=== PATIENT | female | born 1960 | race Caucasian/White ===

== ENCOUNTER 2024-02-12 06:23 | Outpatient (CLI) | payer OTHER, SELFPAY ==
--- NOTE | 2024-02-12 07:47 | W.ANESCHARGE ---
Anesthesia Charges Start Date/Time Anesthesia Start Date: 02/12/24 Anesthesia Start Time: 07:27 Stop Date/Time Anesthesia Stop Date: 02/12/24 Anesthesia Stop Time: 07:45
--- NOTE | 2024-02-12 08:59 | W.ANESCHARGE ---
Anesthesia Charges Start Date/Time Anesthesia Start Date: 02/12/24 Anesthesia Start Time: 07:27 Stop Date/Time Anesthesia Stop Date: 02/12/24 Anesthesia Stop Time: 07:45
== END 2024-02-12 06:24 | disposition home or self-care (01) ==
PROVIDERS: Visit Provider Surgery
DX: R19.8 Other specified symptoms and signs involving the digestive system and abdomen (principal); K21.00 Gastro-esophageal reflux disease with esophagitis, without bleeding; K44.9 Diaphragmatic hernia without obstruction or gangrene; Z98.0 Intestinal bypass and anastomosis status
CPT/HCPCS: 00731; 43239; 88305; J2405; J2704